=== PATIENT | female | born 1980 | race Caucasian/White ===

== ENCOUNTER 2022-03-12 06:00 | Day surgery (SDC) | payer OTHER | END 2022-03-12 16:55 | disposition home or self-care (01) | LOC: CIR.AMB 06:00 | PROVIDERS: ATTEND Obstetrics & Gynecology | DX: Z30.2 Encounter for sterilization (principal) ==

== ENCOUNTER 2023-05-08 09:26 | Emergency (ER) | payer OTHER ==
[~2023-05-08] VITALS: Ht 152.4 cm; Wt 48.1 kg
[2023-05-08] MEDS ORDERED: MONISTAT 745 GM VAG (10:58)
[2023-05-08] MEDS ORDERED: FLUCONAZOLE150 MG PO (10:58)
== END 2023-05-08 11:03 | disposition home or self-care (01) ==
LOC: ER 09:26
DX: B37.49 Other urogenital candidiasis (principal)

== ENCOUNTER 2025-02-01 11:00 | Day surgery (SDC) | payer OTHER ==
[2025-01-28 11:09] LABS: BASO % 0.9 % (0.1-1.2); EOS # 0.49 (0.04-0.54); EOS % 6.5 % (0.7-7.0); LYMPH # 1.73 (1.18-3.74); LYMPH % 23.0 % (19.3-53.1); MEAN PLATELET VOLUME 9.90 fl (9.4-12.4); MONO # 0.63 (0.24-0.82); MONO % 8.4 % (4.7-12.5); NEUT # 4.58 (1.56-6.13); NEUT % 60.9 % (34.0-71.1); RED CELL DISTRIBUTION WIDTH 12.5 % (11.6-14.4)
[2025-01-28 11:49] LABS: INR 0.98
[2025-01-28 12:07] LABS: ALT/SGPT 16.0 U/L (12-78); AST/SGOT 10.0 U/L (15-37); BILIRUBIN TOTAL 0.93 mg/dL (0.3-1.2); BUN CREA RATIO 14.0 (7.0-25.0); CREATININE SERUM 0.58 mg/dL (0.55-1.02); GFR 113.46; GLOBULINA 3.5 G/DL (2.4-3.5); GLUCOSE FASTING 75.0 mg/dL (65-100); OSMOLALITY SERUM 278.0 MOSM/KG (275-295)
[2025-01-28 12:21] LABS: URINE APPEARANCE Cloudy; URINE BILIRRUBIN Negative (NEGATIVE); URINE BLOOD Negative; URINE COLOR Yellow; URINE GLUCOSE Negative (NEGATIVE); URINE KETONE Negative (NEGATIVE); URINE LEUKOCYTE Negative; URINE NITRATE Negative; URINE PROTEIN Negative (NEGATIVE); URINE UROBILINOGEN 0.2 E.U./dl
[2025-01-28 12:25] LABS: URINE BACTERIA 1333.1 uL (0.0-1933); URINE EPITHELIAL CELLS 51.2 uL (0.0-38.8); URINE RBC 58.6 uL (0.0-20.8); URINE WBC 27.2 uL (0.0-23.2)
[2025-01-28 12:37] LABS: URINE CAST 0.43 uL (0.0-1.40)
[~2025-02-01 11:00] MED LIST: FLUCONAZOLE150 MG PO; MONISTAT 745 GM VAG
[2025-02-01] MEDS ORDERED: POVIDONE-IODINE 118 ML BOTT TOP ONE (13:02)
[2025-02-01] MEDS ORDERED: ONDANSETRON HCL 2 MG/ML VIAL IV ONE (13:45)
[2025-02-01] MEDS ORDERED: KETOROLAC TROMETHAMINE 30 MG VIAL IV ONE (13:45)
[2025-02-01] MEDS ORDERED: KETOROLAC TROMETHAMINE 30 MG VIAL ONE (15:32)
== END 2025-02-01 19:45 | disposition home or self-care (01) ==
LOC: CIR.AMB 11:00
PROVIDERS: ATTEND Obstetrics & Gynecology
DX: N84.0 Polyp of corpus uteri (principal); N93.8 Other specified abnormal uterine and vaginal bleeding